=== PATIENT | male | born 1995 | race Caucasian/White ===

== ENCOUNTER 2018-08-13 09:09 | Emergency (ER) | payer MEDICAID, OTHER ==
[~2018-08-13] VITALS: Ht 175.3 cm; Wt 53.0 kg
[2018-08-13 09:43] VITALS: BP 113/70
== END 2018-08-13 15:00 | disposition home or self-care (01) ==
LOC: ER 09:21
DX: R07.82 Intercostal pain (principal)
CPT/HCPCS: 71045; 99283